=== PATIENT | female | born 1955 ===

== ENCOUNTER → 2025-09-01 09:39 | Outpatient (REF) | payer OTHER, SELFPAY | LOC: PAVMRI 09:39 | PROVIDERS: ATTENDING PHYSICIAN Psychiatry & Neurology Neurology; FAMILY PHYSICIAN Student in an Organized Health Care Education/Training Program | DX: H53.2 Diplopia (principal); R68.89 Other general symptoms and signs; C50.919 Malignant neoplasm of unspecified site of unspecified female breast | CPT/HCPCS: 70553; A9575 ==